=== PATIENT | male | born 1995 | race Caucasian/White ===

== ENCOUNTER → 2018-10-04 | Outpatient (CLI) | payer OTHER ==
--- NOTE | 2018-10-04 17:05 | ECHOF ---
Referral Reason:I45.19 Right bundle-branch block MEASUREMENTS -------- HEIGHT: 188.0 cm WEIGHT: 130.6 kg BP: IVSd: 1.2 cm (0.6 - 1.1) LVIDd: 4.6 cm (3.9 - 5.3) LVPWd: 1.1 cm (0.6 - 1.1) IVSs: 1.5 cm LVIDs: 4.1 cm LVPWs: 1.4 cm LA Diam: 2.6 cm (2.7 - 3.8) LAESV Index (A-L): 19.01 ml/m Ao Diam: 3.4 cm (2.0 - 3.7) AV Cusp: 2.1 cm (1.5 - 2.6) LA Diam: 3.5 cm (2.7 - 3.8) MV EXCURSION: 32.278 mm (> 18.000) MV EF SLOPE: 180 mm/s (70 - 150) EPSS: 0.6 cm MV E Chris: 0.77 m/s MV DecT: 183 ms MV A Chris: 0.59 m/s MV E/A Ratio: 1.30 RAP: 5.00 mmHg RVSP: 29.66 mmHg FINDINGS -------- Sinus rhythm. This was a technically difficult study with suboptimal views. The left ventricular size is normal. There is mild concentric left ventricular hypertrophy. Overa ll left ventricular systolic function is normal with, an EF between 55 - 60 %. The right ventricle is normal in size. The left atrial size is normal. The right atrial size is normal. The aortic valve is trileaflet, and appears structurally normal. No aortic stenosis or regurgitation. The mitral valve is normal. Mild mitral regurgitation is present. Mild tricuspid regurgitation present. The right ventricular systolic pressure, as measured by Doppl er, is 29.66mmHg. The pulmonic valve was not well visualized. There is no pulmonic regurgitation present. The aortic root size is normal. There is no pericardial effusion. CONCLUSIONS -------- 1. Sinus rhythm. 2. This was a technically difficult study with suboptimal views. 3. The left ventricular size is normal. 4. There is mild concentric left ventricular hypertrophy. 5. Overall left ventricular systolic function is normal with, an EF between 55 - 60 %. 6. The left atrial size is normal. 7. The aortic valve is trileaflet, and appears structurally normal. No aortic stenosis or regurgitati on. 8. The mitral valve is normal. 9. Mild mitral regurgitation is present. 10. Mild tricuspid regurgitation present. 11. The right ventricular systolic pressure, as measured by Doppler, is 29.66mmHg. 12. There is no pulmonic regurgitation present. 13. The aortic root size is normal. 14. There is no pericardial effusion. [employer] TEACHER: Asha Felipe RDCS
== END | disposition home or self-care (01) ==
LOC: RADECHMAIN 08:53
PROVIDERS: ATTEND Family Medicine
DX: I08.1 Rheumatic disorders of both mitral and tricuspid valves (principal)
CPT/HCPCS: 93306